=== PATIENT | female | born 1975 | race Caucasian/White ===

== ENCOUNTER → 2023-07-16 18:04 | Outpatient (REF) | payer OTHER, SELFPAY | LOC: WDC 18:04 | PROVIDERS: ATTENDING PHYSICIAN Physician Assistant Medical | DX: Z12.31 Encounter for screening mammogram for malignant neoplasm of breast (principal) | CPT/HCPCS: 77063; 77067 ==

== ENCOUNTER → 2023-09-25 08:20 | Outpatient (REF) | payer OTHER, SELFPAY | LOC: HWRAD 08:20 | PROVIDERS: ATTENDING PHYSICIAN Physician Assistant Medical | DX: R10.9 Unspecified abdominal pain (principal) | CPT/HCPCS: 74177; Q9967 ==

== ENCOUNTER 2023-09-25 13:43 | Emergency (ER) | payer OTHER, SELFPAY ==
[2023-09-25 13:58] VITALS: BP 118/79
[2023-09-25 14:19] LABS: % Basophils 0.6 % (0-2); % Eosinophils 2.8 % (0-6); % Immature Granulocytes 0.3 % (0-0.5); % Lymphocytes 21.2 % (20.5-51.1); % Monocytes 6.2 % (1.7-9.3); % Neutrophils 68.9 % (42.2-75.2); Absolute Basophils 0.1 10^3/uL (0-0.2); Absolute Eosinophils 0.3 10^3/uL (0-0.7); Absolute Lymphocytes 2.1 10^3/uL (1.2-3.4); Absolute Monocytes 0.6 10^3/uL (0.1-0.6); Absolute Neutrophils 6.9 10^3/uL (1.4-6.5); Hematocrit 37.6 % (37.0-47.0); Mean Corp Hgb Conc. 34.6 g/dL (33.0-37.0); Mean Corpuscular Hgb 30.7 pg (27.0-31.0); Mean Corpuscular Volume 88.9 fL (81.0-99.0); Mean Platelet Volume 10.8 fL (7.4-10.4); Nucleated Red Blood Cells % 0 %; Platelet Count 306 10^3/uL (130-400); Red Blood Cell Count 4.23 10^6/uL (4.20-5.40); Red Cell Dist. Width 13.6 % (11.5-14.5)
[2023-09-25 14:29] LABS: HCG, Serum Qualitative Screen Negative
[2023-09-25 14:32] LABS: ALT (SGPT) 202 U/L (0-35); AST (SGOT) 102 U/L (14-36); Albumin 4.4 g/dl (3.5-5.0); Alkaline Phosphatase 166 U/L (38-126); Blood Urea Nitrogen 8 mg/dl (7-17); Calcium 9.1 mg/dl (8.4-10.2); Carbon Dioxide 26 mmol/L (22-30); Chloride 105 mmol/L (98-107); Glucose 91 mg/dl (70-99); Lipase 80 U/L (23-300); Potassium 4.5 mmol/L (3.5-5.1); Sodium 138 mmol/L (135-145); Total Bilirubin 0.7 mg/dl (0.2-1.3); Total Protein 7.4 g/dl (6.3-8.2); eGFR > 60.00
--- NOTE | 2023-09-25 16:18 | ED.GENMED ---
History of Present Illness
<Garima Zheng PA-C - Last Filed: 09/25/23 23:40>
General
Chief Complaint: Abdominal Pain
Source: patient
Exam Limitations: none
Time Seen by Provider: 09/25/23 15:56
Nursing documentation reviewed up to this point in time: agreed with
History of Present Illness
History of Present Illness:
Patient is a 48yo female presenting for further evaluation of right lower quadrant abdominal pain. Patient states that on Friday morning she woke up she noticed some pain in her right lower abdomen. She also started her period on Friday and
initially thought this might be related to her menstrual cycle. Her period has since ended and the abdominal pain has persisted all week. She endorses a constant, aching pain in her right lower quadrant intermittent sharp stabbing pains. Patient
was experiencing some nausea which is since resolved. Also noticing chills but no fever. Patient denies any urinary symptoms, constipation, diarrhea, abnormal vaginal bleeding or discharge.
Patient was seen by her primary care provider yesterday who ordered a CT scan that was done this morning. CT scan resulted and showed bilateral complex adnexal cysts and she was referred to the emergency department for pelvic ultrasound and further
evaluation.
Patient denies any history of STDs. She did have 1 spontaneous at 20 weeks with her third .
Past History
<Garima Zheng PA-C - Last Filed: 09/25/23 23:40>
Past History
ED Past Medical History: Other (R peroneal DVT)
ED Past Surgical History: None
Social History
Tobacco: Non-smoker
Alcohol: None
Drug: None
Personal:
Living: with family
Employment: Employed
Family History
Family History: Other (Noncontributory)
Review of Systems
<Garima Zheng PA-C - Last Filed: 09/25/23 23:40>
Review of Systems
Allergies reviewed?: Yes
All Other Systems: ROS reviewed and negative except as documented in HPI and ROS
Phy Exam
<Garima Zheng PA-C - Last Filed: 09/25/23 23:40>
Physical Exam
Physical Exam:
Vitals: Patient's vital signs are stable. Afebrile
General: Patient is mildly uncomfortable appearing due to pain. Nontoxic
Skin: Warm and dry, no rashes or lesions
Head: Normocephalic, atraumatic
Eyes: Sclera nonicteric. EOMs intact. No nystagmus.
Throat: Protecting airway
Neck: Normal ROM, no cervical spine tenderness, no meningismus
Cardiac: Regular rate and rhythm, no murmurs.
Pulm: Normal respiratory effort, no wheezes, rales, rhonchi heard on exam.
Abdomen: Abdomen soft. Moderate tenderness in right lower quadrant and suprapubic area without rebound tenderness or guarding. No CVA tenderness
Extremities: No evidence of cyanosis or edema. Great distal pulses
Neuro: AAOx3. CN II-XII intact. No focal neurologic deficits.
Psychiatric: Normal affect.
Course
<Garima Zheng PA-C - Last Filed: 09/25/23 23:40>
Orders/Labs/Results
Orders:
Orders
09/25/23 14:03
Test Result ONCE
09/25/23 14:06
Complete Blood Count/With Diff Urgent
Comprehensive Metabolic Panel Urgent
HCG, Serum Qualitative Screen Urgent
Lipase Urgent
09/25/23 16:15
0.9% Sodium Chloride 1000 ml [Nss] 1,000 ml IV BOLUS
Ketorolac [Toradol] 15 mg IV NOW STA
Pelvis (Non Obstetric) US [US Pelvis Only (non-obstetric)] Urgent
Comment: b/l andenxal cystic lesions, 4.6cm on R / 2.9cm L
Reason For Exam: RLQ pain, further eval following CT scan
09/25/23 20:02
Hydrocodone 5/APAP 325 [Magnolia 5/325] 2 tablet PO NOW STA
Abnormal Lab Results
09/25/23
14:06
MPV 10.8 H fL
(7.4-10.4)
Absolute Neuts (auto) 6.9 H 10^3/uL
(1.4-6.5)
AST 102 H U/L
(14-36)
ALT 202 H U/L
(0-35)
Alkaline Phosphatase 166 H U/L
(38-126)
09/25/23 14:06
09/25/23 14:06
Vital Signs
Initial and Last Documented VS:
Initial Vital Signs
Temp Pulse Resp BP Pulse Ox
98.1 F 87 18 118/79 97
09/25/23 13:58 09/25/23 13:58 09/25/23 13:58 09/25/23 13:58 09/25/23 13:58
Last Documented Vital Signs
Temp Pulse Resp BP Pulse Ox
98.1 F 78 16 122/77 96
09/25/23 13:58 09/25/23 20:49 09/25/23 20:49 09/25/23 20:49 09/25/23 20:49
<Lane Roy, - Last Filed: 09/25/23 20:02>
Orders/Labs/Results
Orders:
Orders
09/25/23 14:03
Test Result ONCE
09/25/23 14:06
Complete Blood Count/With Diff Urgent
Comprehensive Metabolic Panel Urgent
HCG, Serum Qualitative Screen Urgent
Lipase Urgent
09/25/23 16:15
0.9% Sodium Chloride 1000 ml [Nss] 1,000 ml IV BOLUS
Ketorolac [Toradol] 15 mg IV NOW STA
Pelvis (Non Obstetric) US [US Pelvis Only (non-obstetric)] Urgent
Comment: b/l andenxal cystic lesions, 4.6cm on R / 2.9cm L
Reason For Exam: RLQ pain, further eval following CT scan
09/25/23 20:02
Hydrocodone 5/APAP 325 [Magnolia 5/325] 2 tablet PO NOW STA
Abnormal Lab Results
09/25/23
14:06
MPV 10.8 H fL
(7.4-10.4)
Absolute Neuts (auto) 6.9 H 10^3/uL
(1.4-6.5)
AST 102 H U/L
(14-36)
ALT 202 H U/L
(0-35)
Alkaline Phosphatase 166 H U/L
(38-126)
09/25/23 14:06
09/25/23 14:06
Vital Signs
Initial and Last Documented VS:
Initial Vital Signs
Temp Pulse Resp BP Pulse Ox
98.1 F 87 18 118/79 97
09/25/23 13:58 09/25/23 13:58 09/25/23 13:58 09/25/23 13:58 09/25/23 13:58
Last Documented Vital Signs
Temp Pulse Resp BP Pulse Ox
98.1 F 78 16 122/77 96
09/25/23 13:58 09/25/23 20:49 09/25/23 20:49 09/25/23 20:49 09/25/23 20:49
<Garima Zheng PA-C - Last Filed: 09/25/23 23:40>
MDM/Problems Addressed
Differential Diagnosis Includes:
Not limited to: Ovarian cyst, tubo-ovarian abscess, ovarian torsion, appendicitis
MDM/Problems Addressed:
Patient is a 48-year-old female presenting with 4 days of right lower quadrant abdominal pain. Had CT scan obtained outpatient earlier today which showed complex mass in your right adnexa and was recommended to come to the emergency department for
further evaluation. Patient reports associated nausea earlier in the week that is resolved. No history of STDs. No associated fever, chills, or vomiting. No urinary symptoms. Vital signs are stable. Patient is afebrile. Physical exam as
above. Patient is in mild discomfort due to pain, although nontoxic-appearing. Abdomen is soft with mild to moderate tenderness in right lower quadrant. No rebound tenderness or guarding. No CVA tenderness. Labs obtained in triage show no acute
abnormalities. White count is normal. test is negative. Did review CT scan performed earlier today which showed bilateral adnexal cystic lesions with right side measuring approximately 4.6 cm recommending further evaluation on
ultrasound.
Will give IV fluids, Toradol for pain. Pelvic ultrasound has been ordered and is pending.
Into reassess patient at bedside. Patient appears more comfortable following Toradol. Ultrasound pending.
Ultrasound report reviewed. No evidence for ovarian torsion bilaterally. There is a complex 3.5 cm cyst noted on the right ovary most suspicious for hemorrhagic cyst. An additional small left paraovarian cystic lesion also noted. Given patient
has no abnormal vaginal discharge, is afebrile, with no leukocytosis�doubt tubo-ovarian abscess.
Patient still in a mild level discomfort. Will give 2 Vicodin while in emergency department. Otherwise�patient is stable for discharge with close CRYSTALIZER OPERATOR follow-up to monitor cysts. Will discharge with return precautions, pain control. Patient
comfortable with plan. All questions answered. Patient seen with attending physician.
Chronic conditions affecting care:
N/A
Acute Exacerbation and/or Progression of Chronic Illness:
N/A
<Garima Zheng PA-C - Last Filed: 09/25/23 23:40>
*Radiology
Radiology exam reviewed: preliminary read by ED provider and radiology read reviewed
*Pulse Oximetry
Patient hypoxic: no
*EKG
Interpreted by ED Provider?: NA
*Sheet Metal Duct Installer Interpretation
Rate: Sheet Metal Duct Installer- N/A
*Critical Care Note
Total Time (30-74mins, 75-104mins- exclusive of procedures): Not Applicable
Data Reviewed
Review of Other/Old Records Reveals: Radiology Studies (CT scan from this morning showing complex bilateral adnexal cystic structures)
Source: previous radiology exam
ED Attending Note
<Garima Zheng PA-C - Last Filed: 09/25/23 23:40>
-
Portions of this chart may have been created with voice recognition software.� Occasional wrong word or��sound alike� substitutions may have occurred due to the inherent limitations of voice recognition software.
<Lane Roy DO - Last Filed: 09/25/23 20:02>
ED Attending Note
Patient seen and examined by attending physician: Yes
I performed the substantive portion of visit, reviewed & personally made and approve the management plan that is documented in note by myself or ZARIA.: Yes
ED Attending Note:
Four 8-year-old female who presents with off-and-on right-sided lower abdominal pain has been going on for 3 months. Worse over the last few days. Outpatient CT showed possible hydrosalpinx or tubo-ovarian abscess on the right. Patient denies any
fevers. She states this pain has been bad when she gets her period. Awake alert and oriented, no distress. No respiratory distress. Assessment plan: Hemorrhagic cyst noted. Also could consider endometriosis. Needs gynecology follow-up. Pain
control. No evidence of tubo-ovarian abscess given her normal white count and afebrile. Normal flow documented well
Discharge Plan
Departure
Patient Disposition: Home (Routine Discharge)
Date of Disposition: 09/25/23
Time of Disposition: 20:03
Patient with high blood pressure during this ER visit?: No
Condition: Good
Covid-19: Not Applicable
Discharge Problem:
Abdominal pain, Complex cyst of right ovary
Instructions: Ovarian Cyst ED, Abdominal Pain
Prescriptions:
New
hydrocodone-acetaminophen 5-325 mg tablet
See Rx Instructions .ROUTE .COMPLEX PRN (Reason: Pain) Qty: 12 0RF
Rx Instructions:
Take 1-2 tabs PO Q4-6 hours as needed for severe pain
ondansetron 4 mg tablet,disintegrating
4 mg PO Q8H PRN (Reason: nausea and vomiting) Qty: 10 0RF
No Action
Sertraline HCl
1 tab PO DAILY
ibuprofen 600 mg tablet
600 mg PO Q8H PRN (Reason: pain) Qty: 20 0RF
Referrals:
Hadley Lynch PA-C [Family Provider] -
Ave Kaufman MD [Active] - Call in 1-3 days for appt
Activity Restrictions/Additional Instructions:
RETURN TO THE EMERGENCY DEPARTMENT WITH ANY FEVERS, CHILLS, INTRACTABLE NAUSEA/VOMITING, SEVERE ABDOMINAL PAIN, HEAVY VAGINAL BLEEDING, DIZZINESS/LIGHTHEADEDNESS, WORSENING IN CURRENT SYMPTOMS, OR ANY OTHER CONCERNS
-As discussed�you can take Motrin and/or Tylenol as needed for mild discomfort. For severe pain�you can take Vicodin every 4-6 hours as needed. This may cause drowsiness and you should not take prior to driving. A prescription for Zofran has been
sent to your pharmacy you can take as needed for persistent nausea
-Is important to stay well-hydrated.
-It is important to follow-up with your CRYSTALIZER OPERATOR for further evaluation/management. The contact information has been provided for you above.
Interventions
Interventions:
*Risk Screen - Suicide Last Done: 09/25/23 15:27
*General Assessment Last Done: 09/25/23 13:58
*Neglect/Abuse Screening Last Done: 09/25/23 15:27
ED- Fall Risk Assessment Last Done: 09/25/23 20:49
*ED COVID-19 Vaccine History Last Done: 09/25/23 13:58
*Nursing Disposition Last Done: 09/25/23 20:49
YJ-Ydehts-Xfgyiswmck Assessment Last Done: 09/25/23 15:27
Discharge Date and Time
Discharge Date/Time: 09/25/23 20:51
Print Language: ICELANDIC
[2023-09-25] MEDS: NSS 1000 IV (16:34)
[2023-09-25] MEDS: TORADOL 15 MG IV (16:34)
[2023-09-25 16:35] VITALS: BMI 36.7
[2023-09-25 16:36] VITALS: BP 111/75
[2023-09-25 17:00] VITALS: BP 110/71
[2023-09-25] MEDS: NORCO 5/325 2 TABLET PO (20:39)
[2023-09-25 20:49] VITALS: BP 122/77
== END 2023-09-25 20:51 | disposition home or self-care (01) ==
LOC: EMR 13:43
PROVIDERS: Emergency Medicine; EMERGENCY PHYSICIAN Emergency Medicine; FAMILY PHYSICIAN Physician Assistant Medical
DX: N83.291 Other ovarian cyst, right side (principal); R10.31 Right lower quadrant pain; R11.0 Nausea; R68.83 Chills (without fever); D25.9 Leiomyoma of uterus, unspecified; I10 Essential (primary) hypertension; F41.9 Anxiety disorder, unspecified; Z86.718 Personal history of other venous thrombosis and embolism
CPT/HCPCS: 99284; 96374; 96361; 76856; 80053; 83690; 84703; 85025

== ENCOUNTER 2023-12-25 22:02 | Emergency (ER) | payer OTHER, SELFPAY ==
[2023-12-25 22:03] VITALS: BMI 36.8
[2023-12-25 22:05] VITALS: BP 136/94
[2023-12-25 22:23] VITALS: BP 140/104
--- NOTE | 2023-12-25 22:36 | ED.GENMED ---
History of Present Illness
General
Chief Complaint: Back Pain
Source: patient
Exam Limitations: none
Time Seen by Provider: 12/25/23 22:36
Nursing documentation reviewed up to this point in time: agreed with
History of Present Illness
History of Present Illness:
48-year-old female with past medical history of DVT, hypertension presents emergency department today with concerns of right sided upper back pain that started approximately 5 hours ago. Patient reports that when she was coming home from work, she
was walking around her house and started to notice some right upper back pain. Patient doses of a muscle relaxer and states that this did not help her pain. She notes that the pain became acutely worse with movement and with breathing or taking a
deep breath. Patient states that this feels similar to when she has had pleurisy in the past. Patient denies any upper respiratory symptoms. She also notes some generalized chest discomfort. Patient denies any recent long distance travel, any
pain or swelling in her legs. Patient denies any trauma to the chest wall, denies any falls, any trauma to the back. Patient denies any syncopal episodes. Patient denies any dizziness or lightheadedness.
Past History
Past History
ED Past Medical History: Other (R peroneal DVT)
ED Past Surgical History: None
Social History
Tobacco: Non-smoker
Alcohol: None
Drug: None
Personal:
Living: with family
Employment: Employed
Family History
Family History: Other (Noncontributory)
Review of Systems
Review of Systems
All Other Systems: ROS reviewed and negative except as documented in HPI and ROS
Phy Exam
Physical Exam
Physical Exam:
General: Patient is well appearing and in no acute distress; non-toxic
Skin: Warm and dry, no rashes or lesions
Head: Normocephalic, atraumatic
Eyes: Sclera non-icteric. EOMs intact. PERRLA.
Cardiac: Patient is tachycardic otherwise regular rhythm, no murmurs
Peripheral Vascular: No lower extremity swelling or edema
Pulm: Pain upon inspiration, no wheezes, rales, or rhonchi
Abdomen: Palpation in the right upper quadrant elicits back pain
Musculoskeletal: Tenderness to palpation of the right paraspinal musculature, no midline spinal tenderness
Neuro: CN II-XII intact, no focal neurologic deficits.
Psychiatric: Appropriate mood and affect.
Course
Orders/Labs/Results
Orders:
Orders
12/25/23 22:03
Electrocardiogram (*1) Urgent
Reason for Study: Other
Other Reason for Exam: back pain that worsens w deep breath
12/25/23 22:04
EKG- Treatment ONCE
12/25/23 22:59
CT Chest Pe Study Urgent
Comment:
Reason For Exam: right upper pleuritic back pain
12/25/23 23:10
Test Result ONCE
12/25/23 23:16
Complete Blood Count/With Diff Urgent
Comprehensive Metabolic Panel Urgent
HCG, Serum Qualitative Screen Urgent
Troponin I Urgent
12/25/23 23:24
Ketorolac [Toradol] 30 mg IV NOW STA
12/26/23 00:22
Morphine Sulfate 4 mg IV NOW STA
12/26/23 02:40
Urinalysis Reflex To Culture Urgent
Date Specimen was Collected: 12/26/23
Time Specimen was Collected: 02:38
Urine Microscopic Reflex Cult Urgent
12/26/23 03:02
US Renal With Bladder Urgent
Comment:
Reason For Exam: right cva tenderness, occult blood
12/26/23 04:26
Ketorolac [Toradol] 15 mg IV NOW STA
Abnormal Lab Results
12/25/23 12/26/23
23:16 02:40
MPV 11.1 H fL
(7.4-10.4)
Absolute Neuts (auto) 6.6 H 10^3/uL
(1.4-6.5)
Glucose 104 H mg/dl
(70-99)
Ur Occult Blood Reflex Trace A
(Negative)
Urine RBC 3-6 A /HPF
(0-2)
Urine Bacteria (Reflex) Few A
(Negative)
12/25/23 23:16
12/25/23 23:16
Vital Signs
Initial and Last Documented VS:
Initial Vital Signs
Temp Pulse Resp BP Pulse Ox
97.7 F 109 20 136/94 98
12/25/23 22:05 12/25/23 22:05 12/25/23 22:05 12/25/23 22:05 12/25/23 22:05
Last Documented Vital Signs
Temp Pulse Resp BP Pulse Ox
97.7 F 109 20 106/77 92
12/25/23 22:05 12/25/23 22:05 12/25/23 22:05 12/26/23 05:00 12/26/23 05:45
MDM/Problems Addressed
Differential Diagnosis Includes:
ddx include pulmonary embolism, trapezius muscle strain/sprain, rib contusion, ACS, nephrolithiasis
MDM/Problems Addressed:
48-year-old female with past medical history of DVT, hypertension presents emergency department today with concerns of right sided upper back pain that started approximately 5 hours ago. Patient reports that when she was coming home from work, she
was walking around her house and started to notice some right upper back pain. She has had kidney stones in the past but feels like this pain is different and higher up than pain she's had with her stone. She compares it to pain she has had with
pleurisy. Because of the pleuritic nature of her pain and her tachycardia, history of DVT, and oral contraceptive use, will send for PE study.
CT PE study shows no evidence for pulmonary embolism, no pleural effusion or pneumothorax, no acute osseous abnormality. Patient notes improvement in her pain with toradol and morphine however she is still uncomfortable. Will send for urinalysis to
look for occult hematuria.
Urinalysis demonstrates occult hematuria. Renal ultrasound negative for hydronephrosis. Pain likely musculoskeletal in nature considering tenderness to palpation, worse with movement, positive straight leg raise. Patient stable for discharge.
Chronic conditions affecting care:
HTN, DVT,
*Pulse Oximetry
Patient hypoxic: no
*Critical Care Note
Total Time (30-74mins, 75-104mins- exclusive of procedures): Not Applicable
Data Reviewed
Review of Other/Old Records Reveals: Records (Reviewed ER physician documentation from 09/25/23)
Source: patient and records
Patient Management
Escalation/DeEscalation of care consider admission/obs:
Patient stable for discharge
Update Note
Update Note:
Patient notes no change in her pain with Toradol, tearful. Will give morphine.
Update patient feels that her pain is slowly coming
ED Attending Note
-
Portions of this chart may have been created with voice recognition software.� Occasional wrong word or��sound alike� substitutions may have occurred due to the inherent limitations of voice recognition software.
Discharge Plan
Departure
Patient Disposition: Home (Routine Discharge)
Date of Disposition: 12/26/23
Time of Disposition: 05:51
Patient with high blood pressure during this ER visit?: Yes
Condition: Good
Discharge Problem:
Back pain
Instructions: Back Exercises, Back Pain, BLOOD PRESSURE
Prescriptions:
New
methylprednisolone [Medrol (Tad)] 4 mg tablets,dose pack
See Rx Instructions .ROUTE .COMPLEX Qty: 21 0RF
Rx Instructions:
orally per package directions
No Action
Sertraline HCl
1 tab PO DAILY
ibuprofen 600 mg tablet
600 mg PO Q8H PRN (Reason: pain) Qty: 20 0RF
hydrocodone-acetaminophen 5-325 mg tablet
See Rx Instructions .ROUTE .COMPLEX PRN (Reason: Pain) Qty: 12 0RF
Rx Instructions:
Take 1-2 tabs PO Q4-6 hours as needed for severe pain
ondansetron 4 mg tablet,disintegrating
4 mg PO Q8H PRN (Reason: nausea and vomiting) Qty: 10 0RF
Referrals:
Manuel Sumner MD [Active] - Call in 1-3 days for appt
Hadley Lynch PA-C [Family Provider] -
Stand Alone Forms: Return to Work
Activity Restrictions/Additional Instructions:
Your CT scan did not show any evidence of pneumothorax, pleurisy, blood clot, or any bony abnormalities. Your renal ultrasound did not show any findings to suggest kidney stone. Your blood work and EKG did not suggest a cardiac cause to your
symptoms.
Please return to the emergency department should you experience chest pain, shortness of breath, fevers or chills, neck pain, urinary or fecal incontinence, inability to ambulate, or any other signs or symptoms concerning to you.
Please call the attached number to schedule an appointment with an orthopedist or see your PCP should your symptoms fail to improve.
Interventions
Interventions:
*Risk Screen - Suicide Last Done: 12/25/23 22:05
*General Assessment Last Done: 12/25/23 22:05
*Neglect/Abuse Screening Last Done: 12/25/23 22:05
ED-Musculoskeletal Assessment Last Done: 12/25/23 23:10
Discharge Date and Time
Print Language: [place]
[2023-12-25 23:00] VITALS: BP 131/88
[2023-12-25 23:22] LABS: % Basophils 0.6 % (0-2); % Eosinophils 2.3 % (0-6); % Immature Granulocytes 0.4 % (0-0.5); % Lymphocytes 23.6 % (20.5-51.1); % Monocytes 6.5 % (1.7-9.3); % Neutrophils 66.6 % (42.2-75.2); Absolute Basophils 0.1 10^3/uL (0-0.2); Absolute Eosinophils 0.2 10^3/uL (0-0.7); Absolute Lymphocytes 2.3 10^3/uL (1.2-3.4); Absolute Monocytes 0.6 10^3/uL (0.1-0.6); Absolute Neutrophils 6.6 10^3/uL (1.4-6.5); Hematocrit 38.9 % (37.0-47.0); Hemoglobin 13.4 g/dL (12.0-16.0); Mean Corp Hgb Conc. 34.4 g/dL (33.0-37.0); Mean Corpuscular Hgb 29.9 pg (27.0-31.0); Mean Corpuscular Volume 86.8 fL (81.0-99.0); Mean Platelet Volume 11.1 fL (7.4-10.4); Nucleated Red Blood Cells % 0 %; Platelet Count 268 10^3/uL (130-400); Red Blood Cell Count 4.48 10^6/uL (4.20-5.40); Red Cell Dist. Width 13.5 % (11.5-14.5); White Blood Cell Count 9.9 10^3/uL (4.8-10.8)
[2023-12-25] MEDS: TORADOL 30 MG IV (23:28)
[2023-12-25 23:39] LABS: HCG, Serum Qualitative Screen Negative
[2023-12-25 23:40] LABS: ALT (SGPT) 24 U/L (0-35); AST (SGOT) 27 U/L (14-36); Albumin 4.7 g/dl (3.5-5.0); Alkaline Phosphatase 72 U/L (38-126); Blood Urea Nitrogen 14 mg/dl (7-17); Calcium 9.5 mg/dl (8.4-10.2); Carbon Dioxide 24 mmol/L (22-30); Chloride 104 mmol/L (98-107); Estimated Creatinine Clearance 112 ml/min; Glucose 104 mg/dl (70-99); Potassium 4.5 mmol/L (3.5-5.1); Sodium 144 mmol/L (135-145); Total Bilirubin 0.2 mg/dl (0.2-1.3); Total Protein 7.8 g/dl (6.3-8.2); eGFR > 60.00
[2023-12-25 23:52] LABS: Troponin I < 0.012 ng/ml
[2023-12-26] VITALS (7 sets, daily range): BP systolic 102–121; BP diastolic 69–86
[2023-12-26] MEDS: MORPHINE SULFATE 4 MG IV (00:42)
[2023-12-26 02:54] LABS: Urine Albumin Trace (Neg - Trace); Urine Bilirubin Negative (Negative); Urine Character Slightly Cloudy (Clear); Urine Color Yellow; Urine Glucose Negative (Negative); Urine Ketone Negative (Negative); Urine Leukocyte Negative (Negative); Urine Nitrite Negative (Negative); Urine Occult Blood Trace (Negative); Urine Urobilinogen Negative (Neg - 1+); Urine pH 6.5 (5.0-9.0)
[2023-12-26 03:09] LABS: Urine Amorphous Seen; Urine Bacteria Few (Negative); Urine Mucus Few; Urine Squamous Cell >30 /LPF (Few); Urine White Cell 0-2 /HPF (0-5)
[2023-12-26] MEDS: TORADOL 15 MG IV (04:35)
== END 2023-12-26 06:12 | disposition home or self-care (01) ==
LOC: EMR 22:02
PROVIDERS: Physician Assistant; EMERGENCY PHYSICIAN Student in an Organized Health Care Education/Training Program; FAMILY PHYSICIAN Physician Assistant Medical
DX: M54.9 Dorsalgia, unspecified (principal); I10 Essential (primary) hypertension; Z86.718 Personal history of other venous thrombosis and embolism; Z87.442 Personal history of urinary calculi
CPT/HCPCS: 99284; 96374; 96375; 96376; 71275; 76770; 80053; 81003; 81015; 84484; 84703; 85025; 93005; Q9967

== ENCOUNTER 2024-05-14 21:43 | Emergency (ER) | payer OTHER, SELFPAY ==
[2024-05-14 21:55] VITALS: BP 146/97
[2024-05-14 22:12] LABS: % Basophils 0.6 % (0-2); % Eosinophils 2.6 % (0-6); % Immature Granulocytes 0.4 % (0-0.5); % Lymphocytes 24.4 % (20.5-51.1); Absolute Basophils 0.1 10^3/uL (0-0.2); Absolute Eosinophils 0.2 10^3/uL (0-0.7); Absolute Lymphocytes 2.3 10^3/uL (1.2-3.4); Absolute Monocytes 0.7 10^3/uL (0.1-0.6); Hematocrit 39.8 % (37.0-47.0); Hemoglobin 13.6 g/dL (12.0-16.0); Mean Corp Hgb Conc. 34.2 g/dL (33.0-37.0); Mean Corpuscular Hgb 30.4 pg (27.0-31.0); Mean Corpuscular Volume 88.8 fL (81.0-99.0); Mean Platelet Volume 10.6 fL (7.4-10.4); Nucleated Red Blood Cells % 0 %; Platelet Count 247 10^3/uL (130-400); Red Blood Cell Count 4.48 10^6/uL (4.20-5.40); Red Cell Dist. Width 13.7 % (11.5-14.5); White Blood Cell Count 9.2 10^3/uL (4.8-10.8)
[2024-05-14 22:23] LABS: HCG, Serum Qualitative Screen Negative
[2024-05-14 22:27] LABS: ALT (SGPT) 24 U/L (0-35); AST (SGOT) 23 U/L (14-36); Albumin 4.4 g/dl (3.5-5.0); Alkaline Phosphatase 72 U/L (38-126); Blood Urea Nitrogen 13 mg/dl (7-17); Calcium 9.5 mg/dl (8.4-10.2); Carbon Dioxide 24 mmol/L (22-30); Chloride 104 mmol/L (98-107); Glucose 123 mg/dl (70-99); Potassium 3.9 mmol/L (3.5-5.1); Sodium 137 mmol/L (135-145); Total Bilirubin 0.3 mg/dl (0.2-1.3); Total Protein 7.8 g/dl (6.3-8.2); eGFR > 60.00
[2024-05-14 23:02] LABS: Troponin I < 0.012 ng/ml
[2024-05-15 01:00] VITALS: BP 133/85
--- NOTE | 2024-05-15 01:47 | ED.GENMED ---
History of Present Illness
General
Chief Complaint: Chest Pain
Source: patient and spouse
Exam Limitations: none
Time Seen by Provider: 05/15/24 01:37
Nursing documentation reviewed up to this point in time: agreed with
History of Present Illness
History of Present Illness:
49-year-old female presents emergency department due to left-sided chest pain rating to her left shoulder for the past 3 days. She has some pain at this time. She denies any shortness of breath.
Past History
Past History
ED Past Medical History: Other (R peroneal DVT)
ED Past Surgical History: None
Social History
Tobacco: Non-smoker
Alcohol: None
Drug: None
Personal:
Living: with family
Employment: Employed
Family History
Family History: Other (Noncontributory)
Review of Systems
Review of Systems
Allergies reviewed?: Yes
All Other Systems: Not applicable
Constitutional: Reports no symptoms
EENT: Reports no symptoms
Respiratory: Reports no symptoms; Denies trouble breathing
Cardiac: Reports chest pain
ABD/GI: Reports no symptoms
: Reports no symptoms
Musculoskeletal: Reports joint pain
Skin: Reports no symptoms
Neurological: Reports no symptoms
Endocrine: Reports no symptoms
Hematologic/Lymphatic: Reports no symptoms
Psychiatric: Reports no symptoms
Phy Exam
Physical Exam
Physical Exam:
Physical Exam
General: no apparent distress, not acutely ill
Neck: supple. no meningeal signs. normal posterior pharynx
Heart: s1/s2 regular rate and rhythm, no murmur. equal radial
pulses.
HEENT: Pupils equal round reactive to light, EOMI
Lungs: no acute respiratory distress. clear bilaterally
Abdomen: normal bowel sounds. not tender. no CVAT
Neuro: alert and oriented. no focal neurological deficits cranial nerves II through XII intact
Skin: no rash
Psychiatric: well kept. interactive and cooperative
Extremities: no edema. no calf tenderness. negative homans. good distal pulses
Scores
Heart Score for Chest Pain Patients
STEMI patient?: No
History: Slightly or Non-Suspicious
ECG: Normal
Age: >45 - <65 years
Risk Factors: 1 or 2 Risk Factors
Troponin: </= Normal Limit
Heart Score for Chest Pain Patients: 2
Heart Score Risk: 2.5% MACE over next 6 weeks
Course
Orders/Labs/Results
Orders:
Orders
05/14/24 21:44
EKG [Electrocardiogram (*1)] Urgent
Reason for Study: Chest Pain
EKG- Treatment ONCE
05/14/24 22:00
Test Result ONCE
05/14/24 22:05
Complete Blood Count/With Diff Urgent
Comprehensive Metabolic Panel Urgent
HCG, Serum Qualitative Screen Urgent
Troponin I Urgent
05/15/24 01:03
EKG [Electrocardiogram (*1)] Urgent
Reason for Study: Chest Pain
EKG- Treatment ONCE
05/15/24 01:10
Troponin I Urgent
Abnormal Lab Results
05/14/24
22:05
MPV 10.6 H fL
(7.4-10.4)
Absolute Monos (auto) 0.7 H 10^3/uL
(0.1-0.6)
Glucose 123 H mg/dl
(70-99)
05/14/24 22:05
05/14/24 22:05
Vital Signs
Initial and Last Documented VS:
Initial Vital Signs
Temp Pulse Resp BP Pulse Ox
97.9 F 99 18 146/97 98
05/14/24 21:55 05/14/24 21:55 05/14/24 21:55 05/14/24 21:55 05/14/24 21:55
Last Documented Vital Signs
Temp Pulse Resp BP Pulse Ox
97.9 F 90 16 133/85 98
05/14/24 21:55 05/15/24 01:00 05/15/24 01:00 05/15/24 01:00 05/15/24 01:00
MDM/Problems Addressed
Differential Diagnosis Includes:
ACS, PE
MDM/Problems Addressed:
49-year-old female with left chest wall pain, doubt ACS or PE. Stable for discharge. Follow-up with primary care. Return precautions given.
Chronic conditions affecting care: HTN
*Pulse Oximetry
Patient hypoxic: no
*EKG
Interpreted by ED Provider?: Yes
EKG Intrepretation Date: 05/14/24
EKG Intrepretation Time: 21:53
Interpretation: normal
Comparison EKG: no changes
Heart Rate: 96
Rate: normal
Rhythm: sinus
[place]: normal axis
Interval: normal interval
QRS Pattern: normal QRS
Ischemia: no ischemia
*Marble Worker Interpretation
Rate: normal
Interpretation: normal
Heart Rate: 95
Rhythm: sinus
*Critical Care Note
Total Time (30-74mins, 75-104mins- exclusive of procedures): Not Applicable
Patient Management
Social determinants of health affecting care: Living situation and Strong social support
Escalation/DeEscalation of care consider admission/obs:
admit not indicated
ED Attending Note
-
Portions of this chart may have been created with voice recognition software.� Occasional wrong word or��sound alike� substitutions may have occurred due to the inherent limitations of voice recognition software.
Discharge Plan
Departure
Patient Disposition: Home (Routine Discharge)
Date of Disposition: 05/15/24
Time of Disposition: 01:56
Patient with high blood pressure during this ER visit?: Yes
Condition: Good
Discharge Problem:
Acute chest wall pain
Instructions: Chest Pain PCP Follow Up, BLOOD PRESSURE
Prescriptions:
No Action
Sertraline HCl
1 tab PO DAILY
ibuprofen 600 mg tablet
600 mg PO Q8H PRN (Reason: pain) Qty: 20 0RF
hydrocodone-acetaminophen 5-325 mg tablet
See Rx Instructions .ROUTE .COMPLEX PRN (Reason: Pain) Qty: 12 0RF
Rx Instructions:
Take 1-2 tabs PO Q4-6 hours as needed for severe pain
ondansetron 4 mg tablet,disintegrating
4 mg PO Q8H PRN (Reason: nausea and vomiting) Qty: 10 0RF
methylprednisolone [Medrol (Tad)] 4 mg tablets,dose pack
See Rx Instructions .ROUTE .COMPLEX Qty: 21 0RF
Rx Instructions:
orally per package directions
Referrals:
Gilbert Thompson MD [Family Provider] - Call in 1-3 days for appt
Discharge Date and Time
Print Language: MAORI
[2024-05-15 01:52] LABS: Troponin I < 0.012 ng/ml
[2024-05-15 02:22] VITALS: BP 118/78
== END 2024-05-15 02:26 | disposition home or self-care (01) ==
LOC: EMR 21:43
PROVIDERS: Emergency Medicine; EMERGENCY PHYSICIAN Emergency Medicine; FAMILY PHYSICIAN Family Medicine
DX: R07.89 Other chest pain (principal); I10 Essential (primary) hypertension
CPT/HCPCS: 99284; 80053; 84484; 84703; 85025; 93005

== ENCOUNTER → 2024-05-25 19:13 | Outpatient (REF) | payer OTHER, SELFPAY | LOC: RAD 19:13 | PROVIDERS: ATTENDING PHYSICIAN Physician Assistant Medical | DX: M54.50 Low back pain, unspecified (principal); Z71.89 Other specified counseling | CPT/HCPCS: 72110 ==

== ENCOUNTER 2024-12-31 09:15 | Emergency (ER) | payer OTHER, SELFPAY ==
[2024-12-31 09:17] VITALS: BP 155/100
[2024-12-31 10:53] LABS: Hematocrit 42.1 % (37.0-47.0); Hemoglobin 13.6 g/dL (12.0-16.0); Mean Corp Hgb Conc. 32.3 g/dL (33.0-37.0); Mean Corpuscular Volume 93.8 fL (81.0-99.0); Nucleated Red Blood Cells % 0 %; Platelet Count 227 10^3/uL (130-400); Red Cell Dist. Width 13.4 % (11.5-14.5)
--- NOTE | 2024-12-31 11:02 | ED.GENMED ---
History of Present Illness
<Frankie Carreon Jr., PA-C - Last Filed: 01/02/25 19:26>
General
Chief Complaint: Abdominal Pain
Source: patient
Exam Limitations: none
Time Seen by Provider: 12/31/24 10:17
Nursing documentation reviewed up to this point in time: agreed with
History of Present Illness
History of Present Illness:
49-year-old female past medical history of hypertension anxiety presenting to the emergency department today with concerns of right lower quadrant abdominal pain described as ripping starting a few hours ago this morning prior to eating breakfast.
Worse with movement. Denies any associated bowel changes nausea vomiting or urinary symptoms.
Past History
<Frankie Carreon Jr., PA-C - Last Filed: 01/02/25 19:26>
Past History
ED Past Medical History: Other (R peroneal DVT)
ED Past Surgical History: None
Social History
Tobacco: Non-smoker
Alcohol: None
Drug: None
Personal:
Living: with family
Employment: Employed
Family History
Family History: Other (Noncontributory)
Review of Systems
<Frankie Carreon Jr., PA-C - Last Filed: 01/02/25 19:26>
Review of Systems
Allergies reviewed?: Yes
All Other Systems: ROS reviewed and negative except as documented in HPI and ROS
Phy Exam
<Frankie Carreon Jr., PA-C - Last Filed: 01/02/25 19:26>
Physical Exam
Physical Exam:
GENERAL: Alert , in no apparent distress
EYE: pupils equal and reactive
NECK: Supple, no significant adenopathy.
ENT: o/p clr, mmm.
CARDIAC: Regular rate and rhythm .
Abdomen: Tender to palpation throughout the right side of the abdomen mild voluntary guarding
LUNGS: Clear breath sounds bilaterally, no acute respiratory distre
NEUROLOGICAL: Alert and oriented, no focal neuro deficits
SKIN: Warm and dry, skin intact.
MUSCULOSKELETAL: No edema, well perfused.
PSYCH: Normal and appropriate interaction.
Course
<Frankie Carreon Jr., DARA - Last Filed: 01/02/25 19:26>
Orders/Labs/Results
Orders:
Orders
12/31/24 10:28
CT Abd/Pel (IV only)-DH only Urgent
Comment:
Reason For Exam: right sdied abdominal pain
12/31/24 10:43
Complete Blood Count/With Diff Urgent
Comprehensive Metabolic Panel Urgent
HCG, Serum Qualitative Screen Urgent
Comment: ADD ON
Lipase Urgent
12/31/24 12:27
Urinalysis Reflex To Culture Urgent
Date Specimen was Collected: 12/31/24
Time Specimen was Collected: 12:25
Urine Microscopic Reflex Cult Urgent
12/31/24 13:05
Add On- LAB Urgent
Tests Added?: serum b-hcg, qualitative
12/31/24 15:10
Ketorolac [Toradol] 15 mg IV NOW STA
US Pelvis Only (non-obstetric) Urgent
Comment:
Reason For Exam: right pelvic pain
12/31/24 17:58
Ketorolac [Toradol] 15 mg IV NOW STA
12/31/24 19:39
Oxycodone [Roxicodone] 5 mg PO NOW STA
Abnormal Lab Results
12/31/24 12/31/24
10:43 12:27
MCHC 32.3 L g/dL
(33.0-37.0)
MPV 11.0 H fL
(7.4-10.4)
Lymphocytes % 20.2 L %
(20.5-51.1)
Glucose 101 H mg/dl
(70-99)
Ur Occult Blood Reflex 1+ A
(Negative)
Urine Bacteria (Reflex) Few A
(Negative)
12/31/24 10:43
12/31/24 10:43
Vital Signs
Initial and Last Documented VS:
Initial Vital Signs
Temp Pulse Resp BP Pulse Ox
97.9 F 96 16 155/100 97
12/31/24 09:17 12/31/24 09:17 12/31/24 09:17 12/31/24 09:17 12/31/24 09:17
Last Documented Vital Signs
Temp Pulse Resp BP Pulse Ox
97.9 F 69 18 137/85 97
12/31/24 09:17 12/31/24 14:49 12/31/24 14:49 12/31/24 14:49 12/31/24 14:49
<AIDEE Calix - Last Filed: 12/31/24 19:48>
Orders/Labs/Results
Orders:
Orders
12/31/24 10:28
CT Abd/Pel (IV only)-[facility] only Urgent
Comment:
Reason For Exam: right sdied abdominal pain
12/31/24 10:43
Complete Blood Count/With Diff Urgent
Comprehensive Metabolic Panel Urgent
HCG, Serum Qualitative Screen Urgent
Comment: ADD ON
Lipase Urgent
12/31/24 12:27
Urinalysis Reflex To Culture Urgent
Date Specimen was Collected: 12/31/24
Time Specimen was Collected: 12:25
Urine Microscopic Reflex Cult Urgent
12/31/24 13:05
Add On- LAB Urgent
Tests Added?: serum b-hcg, qualitative
12/31/24 15:10
Ketorolac [Toradol] 15 mg IV NOW STA
US Pelvis Only (non-obstetric) Urgent
Comment:
Reason For Exam: right pelvic pain
12/31/24 17:58
Ketorolac [Toradol] 15 mg IV NOW STA
12/31/24 19:39
Oxycodone [Roxicodone] 5 mg PO NOW STA
Abnormal Lab Results
12/31/24 12/31/24
10:43 12:27
MCHC 32.3 L g/dL
(33.0-37.0)
MPV 11.0 H fL
(7.4-10.4)
Lymphocytes % 20.2 L %
(20.5-51.1)
Glucose 101 H mg/dl
(70-99)
Ur Occult Blood Reflex 1+ A
(Negative)
Urine Bacteria (Reflex) Few A
(Negative)
12/31/24 10:43
12/31/24 10:43
Vital Signs
Initial and Last Documented VS:
Initial Vital Signs
Temp Pulse Resp BP Pulse Ox
97.9 F 96 16 155/100 97
12/31/24 09:17 12/31/24 09:17 12/31/24 09:17 12/31/24 09:17 12/31/24 09:17
Last Documented Vital Signs
Temp Pulse Resp BP Pulse Ox
97.9 F 69 18 137/85 97
12/31/24 09:17 12/31/24 14:49 12/31/24 14:49 12/31/24 14:49 12/31/24 14:49
<Frankie Carreon Jr., PA-C - Last Filed: 01/02/25 19:26>
MDM/Problems Addressed
MDM/Problems Addressed:
49-year-old female presenting to the emergency department today with concerns of right sided abdominal pain starting this morning throughout his right sensation worse with movement and positioning. On arrival hypertensive otherwise vital signs
normal. Labs without emergent findings. Urinalysis normal. CT scan showing right adnexal cyst measuring 4.3 cm in diameter there is some simple fluid attenuation. Does still have some ongoing discomfort to the area concerning is plan for
ultrasound for further assessment.
<Frankie Carreon Jr., PA-C - Last Filed: 01/02/25 19:26>
*Pulse Oximetry
SaO2: 97
Oxygen Mode of Delivery: Room air
<AIDEE Calix - Last Filed: 12/31/24 19:48>
*Radiology
Radiology exam reviewed: radiology read reviewed
*Pulse Oximetry
Patient hypoxic: no
*Critical Care Note
Total Time (30-74mins, 75-104mins- exclusive of procedures): Not Applicable
<AIDEE Calix - Last Filed: 12/31/24 19:48>
Patient Management
Discussion with other providers: Fulfillment Coordinator (OBGYN DR Narvaez )
<AIDEE Calix - Last Filed: 12/31/24 19:48>
Update Note
Update Note:
Received patient in signout With pending ultrasound. Ultrasound shows a large fibroid uterus confirmation of bilateral ovarian blood flow. 4.3 cm complex right ovarian cystic lesion most likely differential diagnostic possibility would be a
hemorrhagic cyst however other complex right ovarian cystic lesions cannot be excluded including malignancy. Patient still complaining of discomfort. She was given additional dose of IV Toradol. Case discussed with [facility] Dr. Narvaez block mason.
If patient is feeling better she may be discharged home with outpatient follow-up she will need additional imaging/follow-up imaging.
Patient does wish to go home we will give patient a dose of oxycodone now and send prescription to pharmacy. Strict return precautions given and I did review the importance of calling [facility] Friday morning for appointment as soon as possible.
ED Attending Note
<Frankie Carreon Jr., PA-C - Last Filed: 01/02/25 19:26>
-
Portions of this chart may have been created with voice recognition software.� Occasional wrong word or��sound alike� substitutions may have occurred due to the inherent limitations of voice recognition software.
Discharge Plan
Departure
Patient Disposition: Home (Routine Discharge)
Date of Disposition: 12/31/24
Time of Disposition: 19:42
Patient with high blood pressure during this ER visit?: Yes
Condition: Fair
Covid-19: Not Applicable
Discharge Problem:
Ovarian cyst
Instructions: Ovarian cyst - ED (DC), BLOOD PRESSURE
Prescriptions:
New
oxycodone 5 mg tablet
5 mg PO Q6H PRN (Reason: Pain) Qty: 10 0RF
No Action
Sertraline HCl
1 tab PO DAILY
ibuprofen 600 mg tablet
600 mg PO Q8H PRN (Reason: pain) Qty: 20 0RF
hydrocodone-acetaminophen 5-325 mg tablet
See Rx Instructions .ROUTE .COMPLEX PRN (Reason: Pain) Qty: 12 0RF
Rx Instructions:
Take 1-2 tabs PO Q4-6 hours as needed for severe pain
ondansetron 4 mg tablet,disintegrating
4 mg PO Q8H PRN (Reason: nausea and vomiting) Qty: 10 0RF
methylprednisolone [Medrol (Tad)] 4 mg tablets,dose pack
See Rx Instructions .ROUTE .COMPLEX Qty: 21 0RF
Rx Instructions:
orally per package directions
Referrals:
Jaison Hilliard MD [Family Provider, Internal Medicine]
Susana Narvaez DO [Active, Gynecology]
Activity Restrictions/Additional Instructions:
As discussed may alternate between ibuprofen and Tylenol at home however a prescription for oxycodone was sent to your pharmacy take as discussed. This medication is a narcotic please take a laxative while taking this medication. Follow-up with
[facility] as soon as possible call Friday to make an appointment. Return however to the ER for any worsening of symptoms of increased pain nausea vomiting fever chills or any further concerns.
Interventions
Interventions:
*Risk Screen - Suicide Last Done: 12/31/24 09:18
*General Assessment Last Done: 12/31/24 10:46
*Neglect/Abuse Screening Last Done: 12/31/24 09:18
*ED- Fall Risk Assessment Last Done: 12/31/24 10:46
*ED COVID-19 Vaccine History Last Done: 12/31/24 10:46
*ED Influenza Vaccine History Last Done: 12/31/24 10:46
*Nursing Disposition Last Done: 12/31/24 20:36
FC-Hpouxj-Raqsvuprkf Assessment Last Done: 12/31/24 10:46
Discharge Date and Time
Discharge Date/Time: 12/31/24 20:36
Print Language: MOHAWK
[2024-12-31 11:07] LABS: ALT (SGPT) 26 U/L (0-35); AST (SGOT) 23 U/L (14-36); Albumin 4.4 g/dl (3.5-5.0); Alkaline Phosphatase 79 U/L (38-126); Blood Urea Nitrogen 11 mg/dl (7-17); Calcium 9.1 mg/dl (8.4-10.2); Carbon Dioxide 28 mmol/L (22-30); Chloride 104 mmol/L (98-107); Glucose 101 mg/dl (70-99); Lipase 125 U/L (23-300); Potassium 4.2 mmol/L (3.5-5.1); Sodium 137 mmol/L (135-145); Total Protein 7.7 g/dl (6.3-8.2); eGFR > 60.00
[2024-12-31 12:54] LABS: Urine Character Clear (Clear)
[2024-12-31 13:31] LABS: Urine Red Blood Cell 0-2 /HPF (0-2); Urine Squamous Cell 16-20 /LPF (Few)
[2024-12-31 14:15] LABS: HCG, Serum Qualitative Screen Negative
[2024-12-31 14:49] VITALS: BP 137/85
[2024-12-31] MEDS: TORADOL 15 MG IV ×2 (15:16→18:02)
[2024-12-31] MEDS: ROXICODONE 5 MG PO (19:46)
== END 2024-12-31 20:36 | disposition home or self-care (01) ==
LOC: EMR 09:15
PROVIDERS: Physician Assistant; EMERGENCY PHYSICIAN Emergency Medicine; FAMILY PHYSICIAN Internal Medicine Geriatric Medicine
DX: N83.201 Unspecified ovarian cyst, right side (principal); I10 Essential (primary) hypertension; F41.9 Anxiety disorder, unspecified; Z86.718 Personal history of other venous thrombosis and embolism
CPT/HCPCS: 99284; 96374; 96375; 96376; 74177; 76856; 80053; 81003; 81015; 83690; 84703; 85025; Q9967